=== PATIENT | female | born 1970 | race Caucasian/White ===

== ENCOUNTER 2020-04-07 13:53 | Inpatient (IN) ==
[2020-04-07] MEDS ORDERED: PHENobarb/HYOSCY/ATROPINE/SCOP 1 DOSE BOTTLE PO ONE (14:30)
--- NOTE | 2020-04-07 15:01 | Emergency Department Note ---
Abdominal Pain HPI General Chief Complaint: Abdominal Pain Stated Complaint: mid epigastric pain Time Seen by Provider: 04/07/20 14:42 Source: patient Mode of arrival: ambulatory Limitations: no limitations History of Present Illness HPI Narrative: There is pleasant 49-year-old female comes the emergency room with 4 to 5 days of epigastric area pain with some radiation to her back now and some down her stomach area. A year ago she had a similar presentation and was diagnosed with an ulcer. She had a GI cocktail that seemed to help. Pain is described as sharp and stabbing and worsening with a deep breath. She is vomited 4 times per day over the last 5 days. This seems to give her some relief. No history of bowel blockage but has a history of gastric bypass with Donn-en-Y by Dr. iFscher, April 2016 in [place]. She has felt some chills 2 days ago as well as some sweatiness last night and 2 days ago. No fevers at home. No diarrhea or constipation or hematochezia. And past medical history knee denies diabetes, hyperlipidemia, myocardial infarction, DVT, PE, diverticulitis, gastroesophageal reflux disease, pancreatitis, CVA, TIA. Related Data Home Medications Medication Instructions Recorded Confirmed multivit with min-folic acid 1 mg PO DAILY 04/07/20 04/07/20 [Adult One Daily Multivitamin] Allergies Allergy/AdvReac Type Severity Reaction Status Date / Time No Known Drug Allergies Allergy Verified 04/07/20 20:47 Review of Systems ROS Narrative: Denies cough or wheezing. Feels a little short of breath she attributes to pain No diarrhea or constipation No dysuria Some back pain that is radiating from the epigastric area. No prior. Heating pad seems to help it some. Had a headache this morning. Feels generally weak. [place]illard a little dizzy in the shower yesterday. Has had some recent depression but no anxiety. Feels generally quite fatigued. [facility] Medical/Surgical/Family History All Active Problems Cholelithiasis (Acute) Elevated alkaline phosphatase level (Acute) Elevated bilirubin (Acute) Elevated LFTs (Acute) History of Donn-en-Y gastric bypass (Chronic) Obesity (BMI 30.0-34.9) (Acute) Medical History Gastritis (Resolved) Obesity (BMI 30.0-34.9) (Acute) Surgical History History of Donn-en-Y gastric bypass (Chronic) Social History Smoking Status: Never smoker Alcohol Intake Frequency: holiday/special occasion only (or socially) Substance Use: does not use Exam General Limitations: no limitations General appearance: alert and in no apparent distress Head Head: atraumatic and normocephalic Eye Eye: Present normal appearance and EOMI; Absent scleral icterus ENT ENT: Present normal oropharynx and mucous membranes moist Neck Neck: Present trachea midline; Absent lymphadenopathy and thyromegaly Chest Chest: Present symmetric chest wall rise Respiratory Respiratory: Present normal lung sounds bilaterally; Absent respiratory distress, wheezes, stridor, accessory muscle use and prolonged expiratory phase Cardiovascular Cardiovascular: Present regular rate and normal rhythm; Absent systolic murmur and diastolic murmur Adbominal Abdominal: Present soft, tenderness and guarding; Absent distention, rebound, rigidity, organomegaly and mass Expanded Abdominal Abdominal Tenderness: Present RUQ, epigastrium and moderate Extremities Extremities: Absent pedal edema, pretibial edema and calf tenderness Back Back: Absent CVA tenderness (R), CVA tenderness (L) and spinous process tenderness Neurological Neurological: Present alert and oriented X3 Psychiatric Psychiatric: Present normal affect, normal mood, polite and pleasant; Absent depressed, agitated, anxious and poor eye contact Skin Skin: Present warm and dry Course Vital Signs Vital signs: Vital Signs Temperature 98.1 F 04/07/20 13:55 Pulse Rate 80 04/07/20 13:55 Respiratory Rate 16 04/07/20 13:55 Blood Pressure 99/75 04/07/20 13:55 Pulse Oximetry (%) 99 04/07/20 13:55 Temperature 98.1 F 04/07/20 20:32 Pulse Rate 84 04/07/20 20:32 Respiratory Rate 16 04/07/20 20:32 Blood Pressure 134/94 04/07/20 20:32 Pulse Oximetry (%) 99 04/07/20 20:32 MDM MDM Narrative Medical decision making narrative: 2:48 PM - epigastric area pain. We will do some additional labs including a lactate, lipase, CRP and an ultrasound limited of the abdomen with IV fluids. 4:14 PM - ultrasound results: Distended gallbladder. Probable tiny stones in the dependent portion of the gallbladder. No gallbladder wall thickening or pericholecystic fluid Labs indicate an obstructive pattern with elevated alk phos 193, elevated liver function tests at 82 202 and bilirubin at 2.0. Lactic acid is 1.4 and white count is normal. CRP is significantly elevated at 13.4. UA is unremarkable. 4:22 PM - patient is pain-free and feels quite well now on the first time she has been pain-free in 4 days. 4:44 PM - spoke with Dr. Wilks, general surgeon, who asks about the common bile duct which was only 6 mm. With the obstructive pattern MRCP is essential. Consider getting MRCP even if she had to go to the ER at [facility]. 4:50 PM - no available MRCP here. 5:18 PM - patient will be transferred to the ER at [facility] for MRCP. She is quite unremarkable in general appearance and vital signs and is stable to go by private car. She has some mild return of her pain currently. Further investigation revealed that an MRCP could be done tomorrow afternoon from this hospital and patient warrants admission for control of pain, further work-up with MRCP, and possible cholecystectomy. If she has common bile duct stone will likely need ERCP. This cannot be done in the local [place] area and so would require transfer if needed. 6:39 PM - I spoke with Dr. Kaz Wilks, general surgeon, who is agreeable to the above plan for admission with clear liquids, n.p.o. after midnight, pain and nausea medication control. And that her lactic acid and white count were unremarkable no antibiotics are indicated at this point in time. Lab Data Result diagrams: 04/07/20 14:40 04/07/20 14:40 Labs: Lab Results 04/07/20 04/07/20 04/07/20 Range/Units 14:40 14:40 14:40 WBC 7.2 (4.50-11.00) K/mcL RBC 4.69 (3.59-5.38) M/mcL Hgb 15.1 (11.2-15.7) g/dL Hct 44.9 (34.1-44.9) % MCV 95.7 (80.0-100.0) fL MCH 32.2 (26.0-34.0) pg MCHC 33.6 (31.0-36.0) g/dL RDW 12.4 (11.5-14.5) % Plt Count 192 (140-440) K/mcL MPV 10.7 H (7.4-10.4) fL Gran % 80.6 H (38.0-78.0) % Lymph % (Auto) 11.0 L (15.5-49.0) % Rich % (Auto) 6.8 (1.0-12.0) % Eos % (Auto) 1.5 (0.0-7.0) % Baso % (Auto) 0.1 (0.0-2.0) % Gran # 5.81 (1.80-8.00) K/mcL Lymph # (Auto) 0.79 L (1.50-4.80) K/mcL Rich # (Auto) 0.49 (0.10-0.90) K/mcL Eos # (Auto) 0.11 (0.00-0.70) K/mcL Baso # (Auto) 0.01 (0.00-0.30) K/mcL VBG Lactic Acid (0.5-2.0) mmol/L Sodium 133 (133-145) mmol/L Potassium 4.1 (3.3-5.1) mmol/L Chloride 97 (96-108) mmol/L Carbon Dioxide 23 (22-30) mmol/L Anion Gap 13.0 (8-16) BUN 9 (6-20) mg/dl Creatinine 0.8 (0.6-1.1) mg/dl GFR Calculation 88 Glucose 104 (70-105) mg/dL Calcium 9.4 (8.6-10.4) mg/dl Total Bilirubin 2.0 H (0.0-1.0) mg/dL AST 82 H (0-37) U/l ALT 202 H (0-40) U/l Alkaline Phosphatase 193 H (39-117) U/L Troponin T < 0.01 (0-0.03) ng/ml C-Reactive Protein (0.0-0.8) mg/dl Total Protein 7.1 (5.9-8.4) gm/dL Albumin 4.3 (3.2-5.2) gm/dL Globulin 2.8 (2.2-3.7) gm/dL Albumin/Globulin Ratio 1.5 (1.0-2.3) Lipase (7-60) U/L 04/07/20 04/07/20 Range/Units 14:40 14:56 WBC (4.50-11.00) K/mcL RBC (3.59-5.38) M/mcL Hgb (11.2-15.7) g/dL Hct (34.1-44.9) % MCV (80.0-100.0) fL MCH (26.0-34.0) pg MCHC (31.0-36.0) g/dL RDW (11.5-14.5) % Plt Count (140-440) K/mcL MPV (7.4-10.4) fL Gran % (38.0-78.0) % Lymph % (Auto) (15.5-49.0) % Rich % (Auto) (1.0-12.0) % Eos % (Auto) (0.0-7.0) % Baso % (Auto) (0.0-2.0) % Gran # (1.80-8.00) K/mcL Lymph # (Auto) (1.50-4.80) K/mcL Rich # (Auto) (0.10-0.90) K/mcL Eos # (Auto) (0.00-0.70) K/mcL Baso # (Auto) (0.00-0.30) K/mcL VBG Lactic Acid 1.4 (0.5-2.0) mmol/L Sodium (133-145) mmol/L Potassium (3.3-5.1) mmol/L Chloride (96-108) mmol/L Carbon Dioxide (22-30) mmol/L Anion Gap (8-16) BUN (6-20) mg/dl Creatinine (0.6-1.1) mg/dl GFR Calculation Glucose (70-105) mg/dL Calcium (8.6-10.4) mg/dl Total Bilirubin (0.0-1.0) mg/dL AST (0-37) U/l ALT (0-40) U/l Alkaline Phosphatase (39-117) U/L Troponin T (0-0.03) ng/ml C-Reactive Protein 13.4 H (0.0-0.8) mg/dl Total Protein (5.9-8.4) gm/dL Albumin (3.2-5.2) gm/dL Globulin (2.2-3.7) gm/dL Albumin/Globulin Ratio (1.0-2.3) Lipase 30 (7-60) U/L Discharge Plan Patient/Caregiver Discharge Instructions Pt seen by PLANT TENDER/PA only: No Clinical Impression: Cholelithiasis, History of Donn-en-Y gastric bypass, Elevated alkaline phosphatase level, Elevated bilirubin, Elevated LFTs Patient Disposition: Xfer As Inpt ([facility]) Discharge Date/Time: 04/07/20 20:24
[2020-04-07] MEDS ORDERED: ONDANSETRON 4 MG/2 ML VIAL IV ONE (15:02)
[2020-04-07 15:30] LABS: Basophils # (Auto) 0.01 K/mcL (0.00-0.30); Basophils % (Auto) 0.1 % (0.0-2.0); Eosinophils # (Auto) 0.11 K/mcL (0.00-0.70); Eosinophils % (Auto) 1.5 % (0.0-7.0); Granulocytes % (Auto) 80.6 % (38.0-78.0); Hematocrit 44.9 % (34.1-44.9); Hemoglobin 15.1 g/dL (11.2-15.7); Lymphocytes # (Auto) 0.79 K/mcL (1.50-4.80); Mean Cell Volume 95.7 fL (80.0-100.0); Mean Corpuscular HGB Conc 33.6 g/dL (31.0-36.0); Mean Platelet Volume 10.7 fL (7.4-10.4); Monocytes # (Auto) 0.49 K/mcL (0.10-0.90); Monocytes % (Auto) 6.8 % (1.0-12.0); Platelet Count 192 K/mcL (140-440); RBC 4.69 M/mcL (3.59-5.38); Red Cell Distribution Width 12.4 % (11.5-14.5); WBC 7.2 K/mcL (4.50-11.00)
[2020-04-07] MEDS: HYDROmorphone 0.5 MG/0.5 ML SYRINGE IV PRN ×3 (15:49→20:15)
[2020-04-07 15:51] LABS: C-Reactive Protein 13.4 mg/dl (0.0-0.8)
[2020-04-07 15:52] LABS: ALT/SGPT 202 U/l (0-40); AST/SGOT 82 U/l (0-37); Albumin 4.3 gm/dL (3.2-5.2); Albumin/Globulin Ratio 1.5 (1.0-2.3); Alkaline Phosphatase 193 U/L (39-117); Blood Urea Nitrogen 9 mg/dl (6-20); Calcium 9.4 mg/dl (8.6-10.4); Carbon Dioxide 23 mmol/L (22-30); Chloride 97 mmol/L (96-108); Globulin 2.8 gm/dL (2.2-3.7); Glomerular Filtration Rate 88; Glucose 104 mg/dL (70-105)
--- NOTE | 2020-04-07 15:53 | Ultrasound Report ---
INDICATION: epigastric pain, n/v X5 d TECHNIQUE: Grayscale and color flow Doppler spectral imaging COMPARISON: None. FINDINGS: Gallbladder:Echogenic abnormality in the dependent portion of the gallbladder. Appearance is consistent with small gravel-like stones. This is a subtle finding. Gallbladder is somewhat distended and measures 11 cm maximally. No gallbladder wall thickening or pericholecystic fluid. Common bile duct:No intra or extrahepatic bile duct dilatation.. Common bile duct measures6 mm Liver:No solid or cystic hepatic mass. Liver contour is smooth. No ascites.. Liver [id number] cm Portal vein:Normal hepatopedal portal venous flow Pancreas:Pancreas appears somewhat echogenic content. No focal mass. No fluid collection. No pancreatic duct dilatation IMPRESSION: Distended gallbladder. Probable tiny stones in the dependent portion of the gallbladder. No gallbladder wall thickening or pericholecystic fluid Interpreted and Authenticated by: Malick Ferrera 04/07/20
[2020-04-07] MEDS ORDERED: NALOXONE HCL 0.4 MG/ML VIAL IV PRN (18:47)
[2020-04-07] MEDS: 0.9 % SODIUM CHLORIDE 1,000 ML IV SCH (20:15)
[2020-04-07] MEDS ORDERED: ONDANSETRON 4 MG/2 ML VIAL IV PRN (20:32)
--- NOTE | 2020-04-07 20:37 | General Surg History&Physical ---
HPI History of Present Illness Patient information: Note initiated : 04/07/20 at 8:37 pm Service Date, if different from initiated Date: [] Patient: Michelle Taveras a 49 y/o F admitted on 04/07/20 for mid epigastric pain. Chief Complaint: [] History of present illness: Ms. Taveras is a 49 year old F admitted with gallstone disease. The patient developed severe epigastric pain on Friday morning. This was associated with nausea and vomiting with emesis 3-4 times daily since onset of symptoms. She noted that her urine was dark and that her symptoms were made worse with eating. She finally came to the emergency room where was noted that her LFTs were elevated along with her bilirubin. Ultrasound showed multiple small gallstones layering in the gallbladder. Common bile duct was normal size at 6 mm. Patient has had similar symptoms but th ought it was due to peptic ulcer disease. She has a history of Donn-en-Y gastric bypass and has lost over 130 pounds which is probably contributed to her gallstone disease. Because of elevated alkaline phosphatase and LFTs the patient is admitted and will have MRCP. If MRCP is normal she will be scheduled to have cholecystectomy. Review of Systems All systems: reviewed and no additional remarkable complaints except as stated [facility] Medical History Gastritis (Resolved) Obesity (BMI 30.0-34.9) (Acute) Surgical History History of Donn-en-Y gastric bypass (Chronic) Family History (Updated 04/08/20 @ 13:22 by Charley Wilks MD) Father Hypertension Mother Hypertension age 74 due to dementia Sister Coronary artery disease history of [place] at age 52 Social History smoking status: Never smoker alcohol intake frequency: holiday/special occasion only (or socially) substance use type: does not use MEDS/ALLERGIES Home Medications and Allergies Home Medications Medication Instructions Recorded Confirmed Type multivit with min-folic acid 1 mg PO DAILY 04/07/20 04/07/20 History [Adult One Daily Multivitamin] Allergies Allergy/AdvReac Type Severity Reaction Status Date / Time No Known Drug Allergies Allergy Verified 04/07/20 20:47 Physical Examination Vital Signs Vital signs: Temp Pulse Resp BP Pulse Ox 98.1 F 84 16 134/94 99 04/07/20 20:32 04/07/20 20:32 04/07/20 20:32 04/07/20 20:32 04/07/20 20:32 General physical appearance General physical exam: well developed, well nourished and no distress Eyes Eye exam: PERRL and normal ocular movement ENT ENT exam: normal pinna, normal nares, normal mucosa, no hearing loss and no congestion Head Head exam IM: Present atraumatic and normocephalic Neck Neck exam: no masses, no bruits, trachea midline, no lymphadenopathy and no venous distension Cardiovascular Cardiovascular exam IM: Present normal rate and rhythm Respiratory Respiratory exam: normal expansion, normal respiratory effort, clear to percussion and clear to auscultation Abdomen Abdomen: Present soft and bowel sounds Hernia: Present none Genitourinary Genitourinary (Female): Present normal external genitalia Integumentary Integumentary: Present no rash, no growths and no abnormal pigmentation Neurologic Neurologic: Present normal coordination and normal sensation Musculoskeletal Musculoskeletal: Present normal gait and normal posture Psychiatric Psychiatric: Present oriented to time, oriented to person, oriented to place, speech is normal and memory intact Results Labs Result diagrams: 04/07/20 14:40 04/07/20 14:40 Labs: Abnormal lab results 04/07/20 04/07/20 04/07/20 Range/Units 14:40 14:40 14:40 MPV 10.7 H (7.4-10.4) fL Gran % 80.6 H (38.0-78.0) % Lymph % (Auto) 11.0 L (15.5-49.0) % Lymph # (Auto) 0.79 L (1.50-4.80) K/mcL Total Bilirubin 2.0 H (0.0-1.0) mg/dL AST 82 H (0-37) U/l ALT 202 H (0-40) U/l Alkaline Phosphatase 193 H (39-117) U/L C-Reactive Protein 13.4 H (0.0-0.8) mg/dl Diabetes panel 04/07/20 Range/Units 14:40 Sodium 133 (133-145) mmol/L Potassium 4.1 (3.3-5.1) mmol/L Chloride 97 (96-108) mmol/L Carbon Dioxide 23 (22-30) mmol/L BUN 9 (6-20) mg/dl Creatinine 0.8 (0.6-1.1) mg/dl Glucose 104 (70-105) mg/dL Calcium 9.4 (8.6-10.4) mg/dl AST 82 H (0-37) U/l ALT 202 H (0-40) U/l Alkaline Phosphatase 193 H (39-117) U/L Total Protein 7.1 (5.9-8.4) gm/dL Albumin 4.3 (3.2-5.2) gm/dL Calcium panel 04/07/20 Range/Units 14:40 Calcium 9.4 (8.6-10.4) mg/dl Albumin 4.3 (3.2-5.2) gm/dL Pituitary panel 04/07/20 Range/Units 14:40 Sodium 133 (133-145) mmol/L Potassium 4.1 (3.3-5.1) mmol/L Chloride 97 (96-108) mmol/L Carbon Dioxide 23 (22-30) mmol/L BUN 9 (6-20) mg/dl Creatinine 0.8 (0.6-1.1) mg/dl Glucose 104 (70-105) mg/dL Calcium 9.4 (8.6-10.4) mg/dl Adrenal panel 04/07/20 Range/Units 14:40 Sodium 133 (133-145) mmol/L Potassium 4.1 (3.3-5.1) mmol/L Chloride 97 (96-108) mmol/L Carbon Dioxide 23 (22-30) mmol/L BUN 9 (6-20) mg/dl Creatinine 0.8 (0.6-1.1) mg/dl Glucose 104 (70-105) mg/dL Calcium 9.4 (8.6-10.4) mg/dl Total Bilirubin 2.0 H (0.0-1.0) mg/dL AST 82 H (0-37) U/l ALT 202 H (0-40) U/l Alkaline Phosphatase 193 H (39-117) U/L Total Protein 7.1 (5.9-8.4) gm/dL Albumin 4.3 (3.2-5.2) gm/dL All other labs normal. A/P Assessment and plan (1) Cholelithiasis and cholecystitis with obstruction: Status: Acute (2) Obesity (BMI 30.0-34.9): Status: Acute (3) Gastritis: Status: Resolved Qualifiers: Chronicity: acute Gastritis bleeding: without bleeding Gastritis type: superficial Qualified Code(s): K29.00 - Acute gastritis without bleeding Narrative A/P Narrative: patient is admitted for antibiotics and control of symptoms. She will have MRCP in the morning. If the MRCP is negative I will proceed with laparoscopic cholecystectomy. If MRCP is positive we will need to make an attempt to have her transferred for GI evaluation and ERCP Time Spent With Patient Time: Total time spent is greater than 50% in coordination of care (as documented) at patient's floor/unit and/or counseling patient: Total time spent with greater than 50% in coordination of care (as documented) at patient's floor/unit and/or counseling patient:: 25 - 35 minutes
[2020-04-07] MEDS: PIPERACILLIN SODIUM/TAZOBACTAM 3.375 GM in DEXTROSE 5% IN WATER 50 ML IV SCH (21:46)
[2020-04-08] MEDS: PIPERACILLIN SODIUM/TAZOBACTAM 3.375 GM in DEXTROSE 5% IN WATER 50 ML IV SCH ×5 (03:42→23:49)
[2020-04-08] MEDS: 0.9 % SODIUM CHLORIDE 1,000 ML IV SCH ×3 (03:42→19:04)
--- NOTE | 2020-04-08 08:34 | Magnetic Resonance Report ---
INDICATION: elevated liver enzymes; r/o common bile duct ston TECHNIQUE: Routine noncontrast MRCP COMPARISON: Ultrasound dated 04/07/2020 FINDINGS: There are tiny stones within the dependent portion of the gallbladder lumen. Common hepatic duct and common bile duct are poorly visualized despite routine technique. Definite filling defects are not identified but nonobstructing choledocholithiasis is not identified with certainty. This examination does not exclude small nonobstructing stones in the common bile duct. No intrahepatic bile duct dilatation. Negative liver. No focal intrahepatic abnormalities. Spleen, pancreas, kidneys, left adrenal gland are normal. There is a 2 cm right adrenal nodule. Routine adrenal imaging with in and out of phase sequences or CT follow-up are recommended. IMPRESSION: 1. Technically limited evaluation. Common bile duct and common hepatic duct are not well evaluated 2. Tiny stones in the dependent portion of the gallbladder 3. 2 cm right adrenal nodule Interpreted and Authenticated by: Malick Ferrera 04/08/20
--- NOTE | 2020-04-08 13:32 | General Surgery Progress Note ---
SUBJECTIVE Subjective Patient information: Note initiated : 04/08/20 at 1:28 pm Service Date, if different from initiated Date: [] Patient: Michelle Taveras 49 y/o F admitted on 04/07/20 for mid epigastric pain. Chief Complaint: [patient feels better. Her pain is improved. White blood count is 7.2.] Constitutional Vitals: Vital Signs Temp Pulse Resp BP Pulse Ox 98.5 F 67 14 94/61 96 04/08/20 12:00 04/08/20 12:00 04/08/20 12:00 04/08/20 12:00 04/08/20 12:00 Period Temp Pulse Resp BP Sys/Clifford Pulse Ox Last 24 Hr 98.1 F-100.4 F 67-104 14-23 93-141/57-95 93-100 Intake and Output 04/07/20 04/08/20 04/08/20 21:59 05:59 13:59 Intake Total 34 1244 Output Total 225 450 Balance 34 1019 -450 Weight 254 lb Intake & Output: Intake & Output 04/07/20 04/08/20 04/08/20 21:59 05:59 13:59 Intake Total 34 1244 Output Total 225 450 Balance 34 1019 -450 Weight 254 lb Intake: IV 34 944 Sodium Chloride 0.9% 1,000 ml @ 34 844 120 mls/hr IV .Q8H20M LUZ ELENA Rx#: [id number] Zosyn 3.375 gm In Dextrose 5% 100 in Water 50 ml @ 100 mls/hr IV Q6H LUZ ELENA Rx#:[id number] Oral 300 Output: Void Amount 225 450 Other: Urine Appearance Clear Clear Urine Color Dark Yellow Light Leanne Head Head exam: Present atraumatic and normocephalic Eye Eye exam: Present EOMI, normal appearance, PERRL and scleral icterus Pupils: Present PERRL ENT ENT exam: Present mucous membranes moist and normal exam Neck Neck exam: Present full ROM and normal inspection; Absent tenderness and thyromegaly Respiratory Respiratory exam: Present normal respiratory exam; Absent respiratory distress, rhonchi and wheezes Cardiovascular Cardiovascular exam: Present normal rate and rhythm, RRR, +S1 and +S2; Absent gallop GI/Abdominal GI/Abdominal exam: Present normal bowel sounds, soft and tenderness (tenderness in epigastrium and right upper quadrant) Extremities Exam Extremities exam: Present full ROM and normal capillary refill; Absent pedal edema and tenderness Neurological Exam Neurological exam: Present alert, CN II-XII intact, normal gait, oriented X3 and reflexes normal Psychiatric Psychiatric exam: Present normal affect and normal mood Skin Skin exam: Present intact; Absent cyanosis, rash and urticaria A/P Assessment and plan (1) Cholelithiasis and cholecystitis with obstruction: Status: Acute Comment: patient is counseled for laparoscopic cholecystectomy and it will be scheduled for the a.m. (2) Obesity (BMI 30.0-34.9): Status: Acute (3) Gastritis: Status: Resolved Qualifiers: Chronicity: acute Gastritis bleeding: without bleeding Gastritis type: superficial Qualified Code(s): K29.00 - Acute gastritis without bleeding Time Spent With Patient Time: Total time spent is greater than 50% in coordination of care (as documented) at patient's floor/unit and/or counseling patient:
--- NOTE | 2020-04-08 13:35 | General Surgery Progress Note ---
SUBJECTIVE Subjective Patient information: Note initiated : 04/08/20 at 1:33 pm Service Date, if different from initiated Date: [] Patient: Michelle Taveras 49 y/o F admitted on 04/07/20 for mid epigastric pain. Chief Complaint: [] Constitutional Vitals: Vital Signs Temp Pulse Resp BP Pulse Ox 98.5 F 67 14 94/61 96 04/08/20 12:00 04/08/20 12:00 04/08/20 12:00 04/08/20 12:00 04/08/20 12:00 Period Temp Pulse Resp BP Sys/Clifford Pulse Ox Last 24 Hr 98.1 F-100.4 F 67-104 14-23 93-141/57-95 93-100 Intake and Output 04/07/20 04/08/20 04/08/20 21:59 05:59 13:59 Intake Total 34 1244 Output Total 225 450 Balance 34 1019 -450 Weight 254 lb Intake & Output: Intake & Output 04/07/20 04/08/20 04/08/20 21:59 05:59 13:59 Intake Total 34 1244 Output Total 225 450 Balance 34 1019 -450 Weight 254 lb Intake: IV 34 944 Sodium Chloride 0.9% 1,000 ml @ 34 844 120 mls/hr IV .Q8H20M LUZ ELENA Rx#: [id number] Zosyn 3.375 gm In Dextrose 5% 100 in Water 50 ml @ 100 mls/hr IV Q6H LUZ ELENA Rx#:[id number] Oral 300 Output: Void Amount 225 450 Other: Urine Appearance Clear Clear Urine Color Dark Yellow Light Leanne A/P Assessment and plan (1) Cholelithiasis and cholecystitis with obstruction: Status: Acute Comment: patient is counseled for laparoscopic cholecystectomy and it will be scheduled for the a.m. (2) Obesity (BMI 30.0-34.9): Status: Acute (3) Gastritis: Status: Resolved Qualifiers: Chronicity: acute Gastritis bleeding: without bleeding Gastritis type: superficial Qualified Code(s): K29.00 - Acute gastritis without bleeding Time Spent With Patient Time: Total time spent is greater than 50% in coordination of care (as documented) at patient's floor/unit and/or counseling patient:
[2020-04-08] MEDS: HYDROmorphone 0.5 MG/0.5 ML SYRINGE IV PRN (21:07)
[2020-04-08 22:27] LABS: Appearance,Urine CLEAR; Bacteria,Urine 0 /hpf (0); Bilirubin,Urine NEG (NEG); Color,Urine YELLOW; Culture Indicated,Urine NO; Glucose,Urine (UA) NEGATIVE (NEG); Ketones,Urine NEG (NEG); Leukocyte Esterase,Urine NEG /uL (NEG); Nitrate,Urine NEG (NEG); Protein,Urine NEG (NEG); Specific Gravity,Urine 1.008 (1.000-1.035); Urine Amorphous Crystals FEW /hpf (0); Urine Blood 0.03 mg/dL (<0.03); Urine RBC < 1 /hpf (0-1); Urine Squamous Epithelial Cell 0 /hpf (0-4); Urine WBC < 1 /hpf (0-4); Urobilinogen,Urine NEG (NEG)
[2020-04-09] MEDS: 0.9 % SODIUM CHLORIDE 1,000 ML IV SCH ×3 (04:00→18:52)
[2020-04-09] MEDS: PIPERACILLIN SODIUM/TAZOBACTAM 3.375 GM in DEXTROSE 5% IN WATER 50 ML IV SCH ×3 (05:53→17:02)
[2020-04-09] MEDS: HYDROmorphone 0.5 MG/0.5 ML SYRINGE IV PRN ×3 (05:54→21:42)
[2020-04-09 06:36] LABS: Basophils # (Auto) 0.01 K/mcL (0.00-0.30); Basophils % (Auto) 0.3 % (0.0-2.0); Eosinophils # (Auto) 0.12 K/mcL (0.00-0.70); Eosinophils % (Auto) 3.2 % (0.0-7.0); Granulocytes % (Auto) 60.4 % (38.0-78.0); Hematocrit 38.5 % (34.1-44.9); Lymphocytes # (Auto) 0.97 K/mcL (1.50-4.80); Lymphocytes % (Auto) 26.1 % (15.5-49.0); Mean Cell Volume 95.1 fL (80.0-100.0); Mean Corpuscular HGB Conc 33.8 g/dL (31.0-36.0); Mean Platelet Volume 10.4 fL (7.4-10.4); Monocytes # (Auto) 0.37 K/mcL (0.10-0.90); Platelet Count 153 K/mcL (140-440); RBC 4.05 M/mcL (3.59-5.38); Red Cell Distribution Width 12.6 % (11.5-14.5); WBC 3.7 K/mcL (4.50-11.00)
[2020-04-09] MEDS ORDERED: SCOPOLAMINE 1 PATCH PATCH TOPICAL PRN (07:00)
[2020-04-09] MEDS ORDERED: IPRATROPIUM/ALBUTEROL 3 ML AMPUL.NEB NEB PRN ×2 (07:00→09:43)
[2020-04-09 07:04] LABS: ALT/SGPT 107 U/l (0-40); AST/SGOT 53 U/l (0-37); Albumin 3.3 gm/dL (3.2-5.2); Albumin/Globulin Ratio 1.1 (1.0-2.3); Alkaline Phosphatase 191 U/L (39-117); Bilirubin,Direct 3.8 mg/dL (0.0-0.3); Bilirubin,Total 4.3 mg/dL (0.0-1.0); Calcium 8.9 mg/dl (8.6-10.4); Carbon Dioxide 23 mmol/L (22-30); Chloride 107 mmol/L (96-108); Globulin 3.1 gm/dL (2.2-3.7); Glomerular Filtration Rate 103; Glucose 93 mg/dL (70-105); Lactate Dehydrogenase 129 U/L (94-250); Phosphorous 2.5 mg/dL (2.7-4.5); Triglycerides 117 mg/dl (<150); Uric Acid 1.7 mg/dL (2.5-8.0)
[2020-04-09 07:06] LABS: Blood Urea Nitrogen 5 mg/dl (6-20)
[2020-04-09] MEDS ORDERED: IOVERSOL 100 ML SYRINGE IV ONE (08:20)
[2020-04-09] MEDS ORDERED: ROCURONIUM 10 MG/ML ML IV ONE (08:53)
[2020-04-09] MEDS ORDERED: KETAMINE 100 MG/ML ML IV ONE (08:53)
[2020-04-09] MEDS ORDERED: LIDOCAINE HCL/PF 100 MG/5 ML SYRINGE IV ONE (08:53)
[2020-04-09] MEDS ORDERED: DEXAMETHASONE 10 MG/ML VIAL IV ONE (08:53)
[2020-04-09] MEDS ORDERED: MIDAZOLAM 2 MG/2 ML VIAL IV ONE (08:53)
[2020-04-09] MEDS ORDERED: SUGAMMADEX SODIUM 200 MG/2 ML VIAL IV ONE (08:53)
[2020-04-09] MEDS ORDERED: ONDANSETRON 4 MG/2 ML VIAL IV ONE (08:53)
[2020-04-09] MEDS ORDERED: GLYCOPYRROLATE 0.2 MG/ML VIAL IV ONE (08:53)
[2020-04-09] MEDS ORDERED: fentaNYL 100 MCG/2 ML VIAL IV ONE (08:53)
[2020-04-09] MEDS ORDERED: PROPOFOL 200 MG/20 ML VIAL IV ONE (08:53)
[2020-04-09] MEDS ORDERED: KETOROLAC 30 MG/ML VIAL IV PRN (09:43)
[2020-04-09] MEDS ORDERED: MEPERIDINE 50 MG/ML INJECTION IM PRN (09:43)
[2020-04-09] MEDS ORDERED: MEPERIDINE 25 MG/ML SYRINGE IV PRN (09:43)
[2020-04-09] MEDS ORDERED: PROMETHAZINE 25 MG/ML VIAL IM PRN (09:43)
[2020-04-09] MEDS ORDERED: PROMETHAZINE 25 MG/ML VIAL IV PRN ×2 (09:43→10:18)
[2020-04-09] MEDS ORDERED: LACTATED RINGERS 1,000 ML IV SCH (09:45)
--- NOTE | 2020-04-09 10:04 | Brief Operative Note ---
Brief Operative Note Date of procedure: 04/09/20 Pre-op diagnosis: ACUTE CHOLECYSTITIS WITH CHOLELITHIASIS Post-op diagnosis: other (ACUTE CHOLECYSTITIS WITH CHOLELITHIASIS; NORMAL CHOLANGIOGRAM) Procedure: LAPAROSCOPIC CHOLECYSTECTOMY WITH CHOLANGIOGRAM Grafts/Implants: No Anesthesia: GETA Findings: ACUTELY INFLAMED GALLBLADDER WITH NORMAL CHOLANGIOGRAM Complications: none Surgeon: Charley Wilks Estimated blood loss (cc): 15 Specimens Removed/Pathology: other (GALLBLADDER) Condition: stable Disposition: PACU
[2020-04-09] MEDS ORDERED: oxyCODONE HCL 5 MG TABLET PO PRN (10:18)
[2020-04-09] MEDS ORDERED: ONDANSETRON 4 MG/2 ML VIAL IV PRN (10:18)
[2020-04-09] MEDS ORDERED: ACETAMINOPHEN 1,000 MG in PREMIX 1 BAG IV SCH (10:18)
[2020-04-09] MEDS: fentaNYL 100 MCG/2 ML VIAL IV PRN ×2 (10:22→10:25)
--- NOTE | 2020-04-09 10:24 | XRay Report ---
INDICATION: Cholecystectomy TECHNIQUE: Intraoperative fluoroscopy and cholecystogram performed. 0.7 minutes fluoroscopy utilized. 15.6 mGy exposure COMPARISON: Preoperative MRCP and ultrasound FINDINGS: Multiple spot films were obtained following injection of the common hepatic duct. Common hepatic duct and common bile duct are normal. No intraluminal filling defects. No choledocholithiasis. No stricture or mass. Normal communication demonstrated to the duodenum IMPRESSION: Negative intraoperative cholecystogram. No choledocholithiasis Interpreted and Authenticated by: Malick Ferrera 04/09/20
[2020-04-09] MEDS: ACETAMINOPHEN 1,000 MG/100 ML BOTTLE IV SCH ×3 (11:16→23:48)
[2020-04-09] MEDS: KETOROLAC 30 MG/ML VIAL IV SCH ×3 (13:06→23:49)
[2020-04-10] MEDS: PIPERACILLIN SODIUM/TAZOBACTAM 3.375 GM in DEXTROSE 5% IN WATER 50 ML IV SCH ×4 (00:22→16:59)
[2020-04-10] MEDS: 0.9 % SODIUM CHLORIDE 1,000 ML IV SCH ×3 (04:53→22:00)
[2020-04-10] MEDS: ACETAMINOPHEN 1,000 MG/100 ML BOTTLE IV SCH (05:03)
[2020-04-10] MEDS: KETOROLAC 30 MG/ML VIAL IV SCH (05:43)
[2020-04-10 06:40] LABS: Basophils # (Auto) 0.01 K/mcL (0.00-0.30); Basophils % (Auto) 0.1 % (0.0-2.0); Eosinophils # (Auto) 0.01 K/mcL (0.00-0.70); Eosinophils % (Auto) 0.1 % (0.0-7.0); Granulocytes % (Auto) 79.6 % (38.0-78.0); Hemoglobin 12.1 g/dL (11.2-15.7); Lymphocytes # (Auto) 0.98 K/mcL (1.50-4.80); Lymphocytes % (Auto) 12.6 % (15.5-49.0); Mean Cell Volume 96.8 fL (80.0-100.0); Mean Corpuscular HGB Conc 33.6 g/dL (31.0-36.0); Mean Platelet Volume 10.8 fL (7.4-10.4); Monocytes # (Auto) 0.59 K/mcL (0.10-0.90); Monocytes % (Auto) 7.6 % (1.0-12.0); Platelet Count 169 K/mcL (140-440); RBC 3.72 M/mcL (3.59-5.38); Red Cell Distribution Width 12.5 % (11.5-14.5); WBC 7.8 K/mcL (4.50-11.00)
[2020-04-10 07:06] LABS: Chloride 106 mmol/L (96-108)
[2020-04-10 07:10] LABS: ALT/SGPT 94 U/l (0-40); AST/SGOT 57 U/l (0-37); Albumin 2.6 gm/dL (3.2-5.2); Albumin/Globulin Ratio 0.8 (1.0-2.3); Alkaline Phosphatase 192 U/L (39-117); Bilirubin,Direct 4.4 mg/dL (0.0-0.3); Bilirubin,Total 5.3 mg/dL (0.0-1.0); Blood Urea Nitrogen 5 mg/dl (6-20); Calcium 8.9 mg/dl (8.6-10.4); Carbon Dioxide 20 mmol/L (22-30); Globulin 3.4 gm/dL (2.2-3.7); Glomerular Filtration Rate 115; Glucose 114 mg/dL (70-105); Lactate Dehydrogenase 159 U/L (94-250); Phosphorous 2.7 mg/dL (2.7-4.5); Triglycerides 90 mg/dl (<150); Uric Acid 1.6 mg/dL (2.5-8.0)
[2020-04-10] MEDS: HYDROmorphone 0.5 MG/0.5 ML SYRINGE IV PRN ×2 (13:49→20:53)
--- NOTE | 2020-04-10 16:04 | General Surgery Progress Note ---
SUBJECTIVE Subjective Patient information: Note initiated : 04/10/20 at 4:02 pm Service Date, if different from initiated Date: [] Patient: Michelle Taveras 49 y/o F admitted on 04/07/20 for mid epigastric pain. Chief Complaint: [] Interval history: Narrative:patient is status post laparoscopic cholecystectomy with cholangiogram. The cholangiogram showed a normal common bile duct with tapering to the duodenum without any filling defects. Patient had temperature elevation to 100. She has not had any chills or sweats. She denies dysuria or frequency. She still jaundiced with elevated bilirubin of 5.3. There is no significant change in her LFTs.her white blood count is 7.8. Constitutional Vitals: Vital Signs Temp Pulse Resp BP Pulse Ox 100.3 F H 91 H 20 114/71 98 04/10/20 13:32 04/10/20 13:32 04/10/20 13:32 04/10/20 13:32 04/10/20 13:32 Period Temp Pulse Resp BP Sys/Clifford Pulse Ox Last 24 Hr 98 F-100.3 F 59-95 14-20 98-114/63-71 94-99 Intake and Output 04/10/20 04/10/20 04/10/20 05:59 13:59 21:59 Intake Total 6438 481 0048 Output Total 325 350 Balance 0475 772 1504 Weight 220 lb 1.6 oz Patient Weight 04/11/20 05:59 Weight 220 lb 1.6 oz Intake & Output: Intake & Output 04/10/20 04/10/20 04/10/20 05:59 13:59 21:59 Intake Total 5423 865 2254 Output Total 325 350 Balance 3110 155 1572 Weight 220 lb 1.6 oz Intake: IV 2789 738 2722 Sodium Chloride 0.9% 1,000 ml @ 1000 1000 120 mls/hr IV .Q8H20M LUZ ELENA Rx#: [id number] Zosyn 3.375 gm In Dextrose 5% 50 100 in Water 50 ml @ 100 mls/hr IV Q6H LUZ ELENA Rx#:[id number] Oral 350 580 Output: Void Amount 325 350 Other: Meal Breakfast Percent of Meal Consumed 50% Feeding Ability Independent Urine Color Dark Leanne Straw Urine Odor Normal Head Head exam: Present atraumatic, normal inspection and normocephalic Eye Eye exam: Present EOMI, normal appearance and PERRL; Absent scleral icterus ENT ENT exam: Present mucous membranes moist, normal exam, normal external ear exam and normal oropharynx Neck Neck exam: Present full ROM, normal inspection and thyromegaly; Absent tenderness Respiratory Respiratory exam: Present normal respiratory exam and CTAB; Absent rales, respiratory distress, rhonchi and wheezes Cardiovascular Cardiovascular exam: Present normal rate and rhythm, JVD, RRR, +S1 and +S2 GI/Abdominal GI/Abdominal exam: Present normal bowel sounds, soft, distended and tenderness Additional comments: mild tenderness at port sites; bloody SANTIAGO drainage Extremities Exam Extremities exam: Present full ROM; Absent pedal edema and tenderness Back Exam Back exam: Present full ROM and normal inspection Neurological Exam Neurological exam: Present alert, CN II-XII intact, normal gait and oriented X3 Psychiatric Psychiatric exam: Present normal affect and normal mood Skin Skin exam: Absent cyanosis A/P Assessment and plan (1) Cholelithiasis and cholecystitis with obstruction: Status: Acute Comment: clinically stable except for fever. No change in bilirubin or LFTs. (2) Obesity (BMI 30.0-34.9): Status: Acute (3) Gastritis: Status: Resolved Qualifiers: Chronicity: acute Gastritis bleeding: without bleeding Gastritis type: superficial Qualified Code(s): K29.00 - Acute gastritis without bleeding Narrative A/P Narrative: Narrative: saline lock IV Low-fat diet Delayed discharge for 1 more day. Time Spent With Patient Time: Total time spent is greater than 50% in coordination of care (as documented) at patient's floor/unit and/or counseling patient:
[2020-04-10] MEDS: ACETAMINOPHEN 325 MG TABLET PO PRN ×2 (16:34→20:40)
[2020-04-11] MEDS: PIPERACILLIN SODIUM/TAZOBACTAM 3.375 GM in DEXTROSE 5% IN WATER 50 ML IV SCH ×3 (00:10→14:15)
[2020-04-11] MEDS: ACETAMINOPHEN 325 MG TABLET PO PRN ×2 (00:43→05:38)
[2020-04-11] MEDS: 0.9 % SODIUM CHLORIDE 1,000 ML IV SCH ×2 (02:40→14:16)
[2020-04-11 07:26] LABS: Basophils # (Auto) 0.02 K/mcL (0.00-0.30); Basophils % (Auto) 0.2 % (0.0-2.0); Eosinophils # (Auto) 0.04 K/mcL (0.00-0.70); Eosinophils % (Auto) 0.5 % (0.0-7.0); Granulocytes % (Auto) 79.4 % (38.0-78.0); Hemoglobin 11.4 g/dL (11.2-15.7); Lymphocytes # (Auto) 1.01 K/mcL (1.50-4.80); Mean Corpuscular HGB Conc 34.5 g/dL (31.0-36.0); Mean Platelet Volume 10.9 fL (7.4-10.4); Monocytes # (Auto) 0.67 K/mcL (0.10-0.90); Monocytes % (Auto) 7.9 % (1.0-12.0); Platelet Count 225 K/mcL (140-440); RBC 3.55 M/mcL (3.59-5.38); Red Cell Distribution Width 12.7 % (11.5-14.5); WBC 8.5 K/mcL (4.50-11.00)
[2020-04-11 07:38] LABS: ALT/SGPT 67 U/l (0-40); AST/SGOT 36 U/l (0-37); Albumin 2.4 gm/dL (3.2-5.2); Albumin/Globulin Ratio 0.7 (1.0-2.3); Alkaline Phosphatase 182 U/L (39-117); Bilirubin,Total 4.2 mg/dL (0.0-1.0); Blood Urea Nitrogen 6 mg/dl (6-20); Calcium 8.6 mg/dl (8.6-10.4); Carbon Dioxide 21 mmol/L (22-30); Chloride 103 mmol/L (96-108); Globulin 3.5 gm/dL (2.2-3.7); Glomerular Filtration Rate 109; Glucose 91 mg/dL (70-105); Lactate Dehydrogenase 134 U/L (94-250); Triglycerides 102 mg/dl (<150); Uric Acid 1.4 mg/dL (2.5-8.0)
[2020-04-11 07:39] LABS: Bilirubin,Direct 3.5 mg/dL (0.0-0.3)
--- NOTE | 2020-04-11 11:52 | Surgical Pathology Report ---
HISTOLOGY SPECIMEN MICROSCOPIC DIAGNOSIS GALLBLADDER, CHOLECYSTECTOMY: -- ACUTE AND CHRONIC CHOLECYSTITIS. -- CHOLELITHIASIS. (DMT:adj) PROCEDURAL IMPRESSION Acute cholecystitis with cholelithiasis. GROSS DESCRIPTION Received in formalin labeled with the patient information, is an 8.5 x 4 x 3.6 cm pink-duron gallbladder. The serosal surface is smooth and glistening. There are multiple metal clips including one on the cystic duct. The lumen contains viscous dark green fluid and multiple smooth black stones ranging in size from 0.2 to 0.4 cm in greatest dimension. The mucosa is green-duron and velvety with roughened white-duron trabecular deposits. The wall is up to 0.2 cm thick. Grossly no lesions are identified. [employer] sections submitted in one cassette. (STS:sln) Electronically Signed by: Steve Cazares M.D.
--- NOTE | 2020-04-11 14:58 | Discharge Summary ---
Discharge Provider Provider Patient information: Note initiated : 04/11/20 at 2:50 pm Service Date, if different from initiated Date: [] Patient: Michelle Taveras 49 y/o F admitted on 04/07/20 for mid epigastric pain. Chief Complaint: [] Date of admission: 04/07/20 20:24 Discharge date: 04/11/20 Primary care physician: Geri Jung Admitting clinician: Charley Wilks Attending physician on admission: Charley Wilks Consults: 04/09/20 09:04 Consult to Physician [CONS] Routine Comment: Consulting Provider: Charley Wilks Reason For Exam: Physician to Consult Attending physician on discharge: Charley Wilks Discharging clinician: Charley Wilks COURSE Hospital Course Hospital Course: 49-year-old female admitted on 07 April 2020 with a four-day history of abdominal pain with nausea. She also noted dark urine. She was seen in the emergency room where she was noted to have multiple stones in her gallbladder with thickened gallbladder wall. She also had a dilated duct to 12 mm but no common duct stone. LFTs were elevated above 5. Patient was admitted and had MRCP on 08 April which was nondiagnostic but did not show a stone. She had laparoscopic cholecystectomy with cholangiogram which showed no filling defects of the common bile duct is flow into the duodenum. Patient had elevated temperature yesterday she was continued on antibiotics. Today her white count is normal and her LFTs are basically normal except that her bilirubin is still 4.2 this is improved from her preoperative level. Patient is clinically stable and is tolerating a diet she was discharged home and will be followed up in the office in 2 weeks.J Discharge diagnosis: cholelithiasis Secondary discharge diagnosis: hyperbilirubinemia Time Spent with Patient Time attestation: Total time spent providing and/or coordinating discharge services: Physical Examination Vital Signs Vital signs: Temp Pulse Resp BP Pulse Ox 98.4 F 79 20 118/79 98 04/11/20 12:00 04/11/20 12:00 04/11/20 12:00 04/11/20 12:00 04/11/20 12:00 General physical appearance General physical exam: well developed and no distress Eyes Eye exam: PERRL, normal ocular movement, pale, icteric and other ENT ENT exam: normal pinna, normal nares, normal mucosa and no hearing loss Head Head exam IM: Present atraumatic, normal inspection and normocephalic Neck Neck exam: no masses, no bruits and trachea midline Cardiovascular Cardiovascular exam IM: Present normal rate and rhythm, RRR, +S1 and +S2; Absent gallop and JVD Respiratory Respiratory exam: normal expansion, normal respiratory effort, clear to percussion, clear to auscultation and other Abdomen Abdomen: Present soft, tender (mild incisional tenderness), bowel sounds (normoactive) and surgical scars (port sites well-healed) Integumentary Integumentary: Present no rash, no growths, no abnormal pigmentation and other Neurologic Neurologic: Present normal coordination, normal sensation, disoriented and other Musculoskeletal Musculoskeletal: Present normal gait, normal posture and other Psychiatric Psychiatric: Present oriented to time, oriented to person, oriented to place, speech is normal, memory intact and other Discharge Plan Patient/Caregiver Discharge Instructions Activity: increase activity as tolerated and resume usual activities as tolerated Diet: Low Fat Activity Restrictions/Additional Instructions: With the pattern of your liver enzymes showing possible obstruction the MRCP is essential to rule out or consider if there is a stone in your common bile duct. This is important even in spite of the common bile duct having a normal diameter. With your inflammation markers, pattern of pain, enzyme elevations, most likely you have gallbladder disease that will likely require its removal. You are being sent to [facility] to have this MRCP done. You are to show up at the emergency room there. Prescriptions: Continued Adult One Daily Multivitamin 0.4 mg Tablet 1 mg PO DAILY RF: 0 Follow Up Plan Follow up with: Geri Jung ARNP [Primary Care Provider] - Patient Disposition: Home, Self-Care Assessment: patient is in good stable condition Prognosis: Good Rehab Potential: Good I certify that the patient requires SNF services: No Overall status at discharge: patient is progressing back to baseline Discharge Orders: Discharge Order (Routine); Ordered 04/11/20 Ordered By: Charley Wilks Pending Pending Pending: Resuscitation Status Full Code Diet Full Liquid Diet Start Sun Apr 09 1604 Acetaminophen (Tylenol) 650 mg PO Q4HP PRN; Protocol PRN Reason: Per Pain Protocol/Fever > 101 Last Admin: 04/11/20 05:38 Dose: 650 mg Documented by: Admin: 04/11/20 00:43 Dose: 650 mg Documented by: Admin: 04/10/20 20:40 Dose: 650 mg Documented by: Admin: 04/10/20 16:34 Dose: 650 mg Documented by: CARRIE Hydromorphone HCl (Dilaudid) 0.5 mg IV Q2HP PRN; Protocol PRN Reason: Per Pain Protocol Last Admin: 04/10/20 20:53 Dose: 0.5 mg Documented by: Admin: 04/10/20 13:49 Dose: 0.5 mg Documented by: Admin: 04/09/20 21:42 Dose: 0.5 mg Documented by: Admin: 04/09/20 16:14 Dose: 0.5 mg Documented by: OSCAR Sodium Chloride (Sodium Chloride 0.9%) 1,000 mls @ 120 mls/hr IV .Q8H20M LUZ ELENA Last Admin: 04/11/20 14:16 Dose: Not Given Documented by: Admin: 04/11/20 02:40 Dose: Not Given Documented by: Infusion: 04/11/20 00:40 Dose: 120 mls/hr Documented by: Admin: 04/10/20 22:00 Dose: Not Given Documented by: Admin: 04/10/20 14:56 Dose: 120 mls/hr Documented by: Infusion: 04/10/20 14:56 Dose: 0 mls/hr Documented by: Admin: 04/10/20 04:53 Dose: 120 mls/hr Documented by: Infusion: 04/10/20 03:12 Dose: 120 mls/hr Documented by: Admin: 04/09/20 18:52 Dose: 120 mls/hr Documented by: Infusion: 04/09/20 18:52 Dose: 120 mls/hr Documented by: Admin: 04/09/20 11:16 Dose: 120 mls/hr Documented by: OSCAR Piperacillin Sod/Tazobactam (Sod 3.375 gm/ Dextrose) 50 mls @ 100 mls/hr IV Q6H LUZ ELENA; Protocol Last Admin: 04/11/20 14:15 Dose: Not Given Documented by: Infusion: 04/11/20 06:55 Dose: 0 mls/hr Documented by: Admin: 04/11/20 06:10 Dose: 100 mls/hr Documented by: Infusion: 04/11/20 00:44 Dose: 100 mls/hr Documented by: Admin: 04/11/20 00:10 Dose: 100 mls/hr Documented by: Infusion: 04/10/20 17:48 Dose: 0 mls/hr Documented by: Admin: 04/10/20 16:59 Dose: 100 mls/hr Documented by: Infusion: 04/10/20 12:15 Dose: 0 mls/hr Documented by: Admin: 04/10/20 11:35 Dose: 100 mls/hr Documented by: Infusion: 04/10/20 06:13 Dose: 100 mls/hr Documented by: Admin: 04/10/20 05:43 Dose: 100 mls/hr Documented by: Infusion: 04/10/20 00:52 Dose: 100 mls/hr Documented by: Admin: 04/10/20 00:22 Dose: 100 mls/hr Documented by: Infusion: 04/09/20 17:32 Dose: 100 mls/hr Documented by: Admin: 04/09/20 17:02 Dose: 100 mls/hr Documented by: Infusion: 04/09/20 12:49 Dose: 100 mls/hr Documented by: Admin: 04/09/20 12:19 Dose: 100 mls/hr Documented by: OSCAR Shift Summary 04/11/20 04:05 Shift Summary by Marlen Aguilar Patient is alert and oriented times four, she is up to void via restroom with 1 SBA and her IV is SL and she has denied nausea and is tolerating a full liquid diet well. VSS on RA, TMAX of 99.7 this shift with chills reported by patient and medicated with APAP 650 mg three times for neck pain/fever symptoms and these were well managed. She has 4 lap incision sites with ze and Tegaderm and scant drainage, IV dressing changed last evening. Active bowel tones, passing flatus and reports she had a BM, is receiving scheduled Zosyn and has PO Roxicodone if needed. Will update shift summary report at bedside. Initialized on 04/11/20 04:05 - END OF NOTE
--- NOTE | 2020-04-25 15:11 | Operative Note ---
DATE OF OPERATION: 04/09/2020 PREOPERATIVE DIAGNOSES: Acute cholecystitis with cholelithiasis. POSTOPERATIVE DIAGNOSES: Acute cholecystitis with cholelithiasis, normal cholangiogram. PROCEDURE: Laparoscopic cholecystectomy with cholangiogram. SURGEON: Charley Wilks MD. DESCRIPTION OF PROCEDURE: Under general anesthesia, the patient's abdomen was prepped and draped in a sterile field. A supraumbilical incision was made and Veress needle inserted uneventfully. Abdomen was insufflated with 3 liters of CO2. A 12 mm port was placed. Laparoscope was placed. Under videoscopic guidance, a 12 mm port and two 5 mm ports were placed in the right subcostal region. The patient was placed in reverse Trendelenburg position and rotated to the left. The gallbladder was grasped and positioned. Cystic duct was dissected and followed back to the gallbladder. Cystic duct was clipped at its junction with the gallbladder. A small incision was made in the cystic duct close to the clip. A cholangiogram catheter was placed transabdominally and flushed. It was then positioned in the cystic duct and secured with a clip. Cholangiogram was done, and it showed normal-sized cholangiogram with some narrowing in the pancreatic portion of the duct but with free flow into the duodenum. There were no filling defects. The catheter was removed, and the duct was clipped with four clips and divided. The cystic artery had been identified. It was clipped with four clips on the wall of the gallbladder and divided. The gallbladder was then from the infrahepatic bed using electrocautery. It was placed in an Endopouch and retrieved. Irrigation was carried out. There was no bleeding from the bed. There was no bile leak. CO2 was allowed to escape from the abdomen, and the ports were removed. Fascia at the umbilicus was closed with interrupted 0 Vicryl. Skin incisions were closed with ze. The patient tolerated the procedure well. Tegaderm dressings were placed. The patient was awakened from anesthesia uneventfully, transferred to a bed, and taken to the postanesthetic care unit in stable, satisfactory condition. LCS:briseida Job ID: [id number] Doc ID: [id number] Charley Wilks M.D.
== END 2020-04-11 16:33 | disposition home or self-care (01) | DRG 419 ==
LOC: ED 13:53 → MEDSUR 20:24
PROVIDERS: ADMIT Family Medicine Adult Medicine; ATTEND Family Medicine Adult Medicine